=== PATIENT | male | born 2000 | race Caucasian/White ===

== ENCOUNTER 2023-08-07 11:22 | Emergency (ER) | payer OTHER, SELFPAY ==
[2023-08-07 11:30] VITALS: BP 136/86; PULSE 84; RESP 16; TEMP 37.2; O2SAT 97; BMI 32.1
--- NOTE | 2023-08-07 11:50 | ED.GENADUL1 ---
HPI - General Adult General Chief complaint: Upper Respiratory Infection Stated complaint: URTI Time Seen by Provider: 08/07/23 11:30 Source: patient Mode of arrival: walk-in Limitations: no limitations History of Present Illness HPI narrative: 21-year-old male presents for congestion in his nose and phlegm in his throat. He has a sore throat. He's had the congestion issue for several months but the throat issue for 1-2 days. No cough or shortness of breath or chest pain. Related Data Previous Rx's Medication Instructions Recorded fluticasone propionate 50 1 spray intranasal Q12H #16 grams 08/07/23 mcg/actuation nasal spray,suspension loratadine 5 mg-pseudoephedrine ER 1 tab PO Q12H PRN nasal congestion 08/07/23 120 mg tablet,extended #20 tabs release,12hr (Claritin-D 12 Hour) Allergies Allergy/AdvReac Type Severity Reaction Status Date / Time No Known Drug Allergies Allergy Verified 08/07/23 11:29 Review of Systems ROS Narrative A ten point review of systems is negative except as noted above. PFSH PFSH Social History Smoking status: Light tobacco smoker Exam Narrative Exam Narrative: Nurses note and vital signs reviewed and patient is not hypoxic. General: The patient appears well and in no apparent distress. Patient is resting comfortably on cart. Skin: Warm, dry, no pallor noted. There is no rash noted. Head: Normocephalic, atraumatic Eye: Normal conjunctiva, no drainage Ears, Nose, Mouth, and Throat: oral mucosa is moist. Nares patent. no pharyngeal erythema or exudate present. No cervical adenopathy. Cardiovascular: Regular Rate and Rhythm Respiratory: Patient is in no distress, no accessory muscle use, lungs are clear to auscultation, no wheezing, rales or rhonchi Back: non-tender GI: soft and nontender Musculoskeletal: The patient has no evidence of calf tenderness, no pitting edema, symmetrical pulses noted bilaterally Neurological: A&O, normal speech Psychiatric: Cooperative Constitutional Vital Signs, click to edit/add: Last Vital Signs Temp 99 F 08/07/23 11:30 Pulse 84 08/07/23 11:30 Resp 16 08/07/23 11:30 BP 136/86 08/07/23 11:30 Pulse Ox 97 08/07/23 11:30 O2 Del Method Room Air 08/07/23 11:30 Course Vital Signs Vital signs: Vital Signs Temperature 99 F 08/07/23 11:30 Pulse Rate 84 08/07/23 11:30 Respiratory Rate 16 08/07/23 11:30 Blood Pressure 136/86 08/07/23 11:30 Pulse Oximetry 97 08/07/23 11:30 Oxygen Delivery Method Room Air 08/07/23 11:30 Temperature 99 F 08/07/23 11:30 Pulse Rate 84 08/07/23 11:30 Respiratory Rate 16 08/07/23 11:30 Blood Pressure 136/86 08/07/23 11:30 Pulse Oximetry 97 08/07/23 11:30 Oxygen Delivery Method Room Air 08/07/23 11:30 Medical Decision Making MDM Narrative Medical decision making narrative: strep test is negative. II've no clinical suspicion of Covid or influenza. Antibiotic not indicated. He is being treated symptomatically. Treatment diagnosis and follow-up were discussed with the patient. Differential Diagnosis Differential Diagnosis: viral upper respiratory infection, strep Lab Data Lab results reviewed: Yes I reviewed the patient's lab results Labs: Lab Results 08/07/23 Range/Units 11:54 Streptococcus Screen Negative Discharge Plan Discharge Chief Complaint: Upper Respiratory Infection Clinical Impression: Upper respiratory infection Patient Disposition: Home, Self-Care Time of Disposition Decision: 12:13 Condition: Good Mode of Transportation: Private Vehicle Prescriptions / Home Meds: New Claritin-D 12 Hour 5-120 mg tablet extended release 12 hr 1 tab PO Q12H PRN (Reason: nasal congestion) Qty: 20 0RF fluticasone propionate 50 mcg/actuation spray,suspension 1 spray intranasal Q12H Qty: 16 0RF Rx Instructions: administer into each nostril Instructions: Upper Respiratory Infection (ED) Stand Alone Forms: Portal Instructions Referrals: Sukhwinder Webb DO [Primary Care Provider] - 1 week
[2023-08-07 12:08] LABS: Internal Control Within Normal Limits; Strep A Antigen Screen Negative
== END 2023-08-07 12:18 | disposition home or self-care (01) ==
PROVIDERS: Emergency Provider Emergency Medicine; PCP Internal Medicine
DX: J06.9 Acute upper respiratory infection, unspecified (principal); F17.210 Nicotine dependence, cigarettes, uncomplicated
CPT/HCPCS: 87070; 87880; 99283

== ENCOUNTER 2023-09-08 11:41 | Outpatient (OUT) | payer SELFPAY ==
--- OUTSIDE RECORDS SUMMARY | 2023-09-08 11:44 | XMS_ITS | CCD ---
Author Name Unknown Address [address] [place] [id number] Organization [facility] Care Team Providers Care Manager N[place] Name Role Phone DR SUKHWINDER MARAVILLA Primary Care Unavailable GEOVANNA KNOTT Admitting Unavailable GEOVANNA KNOTT Attending Unavailable EDILSON TATE Consulting Unavailable NILAM BARKLEY Consulting Unavailable Sukhwinder Maravilla Unavailable Medications Current Medications Medication Drug Class(es) Dates Sig (Normalized) Sig (Original) omeprazole 40 mg delayed release oral capsule (1 source) Proton Pump Inhibitor Start: 08-30-2023 take 1 capsule by mouth once daily Omeprazole 40 MG 1 capsule 30 minutes before morning meal Orally Once a day for 30 days Aug, Active Completed/Discontinued Medications Medication Drug Class(es) Dates Sig (Normalized) Sig (Original) Amoxicillin (1 source) Penicillin-class Antibacterial Amoxicillin 500 mg. Not-Taking/PRN azithromycin 250 mg oral tablet (1 source) Macrolide Antimicrobial Start: 07-06-2015 Zithromax Z-Adam 250 MG 2 tablets on the first day, then 1 tablet daily for 4 days Orally Once a day for 5 day(s) Jun, Not-Taking/PRN Ibuprofen (1 source) Nonsteroidal Anti-inflammatory Drug Ibuprofen Not-Taking/PRN methylPREDNISolone 4 mg oral tablet (1 source) Corticosteroid Start: 12-10-2016 Medrol (Adam) 4 MG half of daily dose in the morning with food and the rest at night with food Orally Nov, Not-Taking/PRN Wrist/Thumb Splint/Right Large - (1 source) Start: 12-10-2016 Wrist/Thumb Splint/Right Large - as directed Nov, Not-Taking/PRN Problems Active Problems Problem Classification Problem Date Documented Da te Episodic/Chronic E Codes: Natural/environment (1 source) Exposure to other specified factors, initial encounter; Translations: [EXPOSURE OTHER SPEC FACTORS INITIAL] Onset: 06-09-2022 Episodic Esophageal disorders (1 source) Gastro-esophageal reflux disease with esophagitis; Translations: [Gastroesophageal reflux disease with esophagitis without hemorrhage] Chronic Other nutritional; endocrine; and metabolic disorders (1 source) Obesity caused by energy imbalance; Translations: [Other obesity due to excess calories] Chronic Other nutritional; endocrine; and metabolic disorders (1 source) Body mass index 30+ - obesity; Translations: [Body mass index (BMI) 34.0-34.9, adult] Chronic Other nutritional; endocrine; and metabolic disorders (1 source) Other obesity due to excess calories Chronic Other nutritional; endocrine; and metabolic disorders (1 source) Body mass index (BMI) 34.0-34.9, adult Chronic Other upper respiratory disease (1 source) Chronic rhinitis; Translations: [Chronic rhinitis] Chronic Other upper respiratory disease (1 source) Chronic rhinitis Chronic Spondylosis; intervertebral disc disorders; other back problems (3 sources) Cervicalgia; Translations: [CERVICALGIA] Onset: 06-08-2022 Episodic Sprains and strains (2 sources) Sprain of joints and ligaments of unspecified parts of neck, initial encounter; Translations: [Sprain of wrist] Onset: 06-09-2022 Episodic Past or Other Problems Problem Classification Problem Date Documented Da te Episodic/Chronic Esophageal disorders (1 source) Esophageal disorders Unclassified (1 source) Globus sensation R09.A2 Results Test Name Value Interpretation Reference Range Facil ity XR CSPINE 2_3 VIEWSon 2021 XR CSPINE 2_3 VIEWS EXAM: XR CSPINE 2_3 VIEWS, XR TSPINE 2 VIEWS HISTORY: Neck pain COMPARISON: None. TECHNIQUE: 3 views of the cervical spine, 3 views of the thoracic spine are performed. FINDINGS: There is preservation of the normal cervical lordosis. Normal vertebral body height and disc spaces. No fracture or subluxation. Normal precervical soft tissues. The visualized paranasal sinuses are clear. Within the thoracic spine, there is no acute bony abnormality. There is preservation of vertebral body height and disc spaces. The pedicles are intact. The visualized portions of the lungs are clear. IMPRESSION: No acute bony abnormality. Electronically authenticated by: NILAM BARKLEY Date: 2022-06-08 18:05 Normal [facility] Vital Signs Date Time Vital Sign Value Performing Clinician Facility 08-30-2023 11:00-0500 Body height 177.8 cm Sukhwinder Maravilla Other [email or web address] Other 08-30-2023 11:00-0500 Body mass index (BMI) [Ratio] 34.66 kg/m2 Sukhwinder Maravilla Other [email or web address] Other 08-30-2023 11:00-0500 Body weight 109.59 kg Sukhwinder Maravilla Other [email or web address] Other 08-30-2023 11:00-0500 Diastolic blood pressure 85 mm[Hg] Sukhwinder Maravilla Other [email or web address] Other 08-30-2023 11:00-0500 Respiratory rate 12 /min Sukhwinder Maravilla Other [email or web address] Other 08-30-2023 11:00-0500 Systolic blood pressure 124 mm[Hg] Sukhwinder Maravilla Other [email or web address] Other Encounters Encounter Date Encounter Type Care Provider Facility Start: 08-30-2023 End: 08-30-2023 ambulatory Sukhwinder Maravilla Other [email or web address] Other Start: 08-30-2023 Encounter for genera l adult medical examination without abnormal findings Sukhwinder Maravilla [facility] Start: 08-30-2023 Periodic preventive med est patient 18-39 yrs Sukhwinder Maravilla [facility] Start: 06-08-2022 End: 06-08-[address] SUKHWINDER MARAVILLA Facility:[facility]1 Payers Date Payer Category Payer Unknown [id number] 1958 Private Health Insurance [id number] Private Health Insurance [id number] Social History Date Type Detail Facility Sex Assigned At [email or web address] Other Evaluation note 08-30-2023 Note Date & Type Note Facility 08-30-2023 Evaluation note Encounter Date Diagnosis Assessment Notes Aug, Wellness examination (ICD-10 - Z00.00) Healthy diet and exercise. Reviewed age-appropria te preventive testing recommended. Aug, Globus sensation (ICD-10 - R09.A2) GERD instructions. Continue FLonase daily. Referral to ENT for evaluation. Aug, Gastroesophageal reflux disease with esophagitis without hemorrhage (ICD-10 - K21.00) Aug, Chronic rhinitis (ICD-10 - J31.0) Flonase daily. OTC Claritin as needed. Aug, Other obesity due to excess calories (ICD-10 - E66.09) This patient has been instructed on a low-fat, high-fiber diet. They are instructed to reduce calories, portion sizes and snacks. It is recommended that they exercise for 30 minutes, 3-5 times weekly. Aug, Body mass index [BMI] 34.0-34.9, adult (ICD-10 - Z68.34) [email or web address] Other History general Narrative - Reported Note Date & Type Note Facility History general Narrative - Reported Type Medical History neurocardiogenic syncope Medical History cardiac murmur [email or web address] Other Summary Purpose Family History No Family History Records Found Advance Directives No Advanced Directives Records Found Reason for Referral Reason Globus sensation Diagnosis 1 Globus sensation (R0 9.A2) Diagnosis 2 Chronic rhinitis (J3 1.0) Diagnosis 3 Gastroesophageal ref lux disease with esophagitis without hemorrhage (K21.00) Referral Organization [facility] Dashawn tan Referring Provider First Name Sukhwinder Referring Provider Last Name Jon Referring Provider Specialty Internal Sc dicine Referred Organization [facility] Referred Provider Radha Kessler Referred Address ,[place], [place],[address] Referred Provider Specialty Ear, Nose an d Throat Referral Priority Routine General Notes Mr. Balderas presents w/ throat discomfort and increased phlegm. His symptoms may be due to both post nasal drainage and GERD. He has been instructed to avoid eating prior to bedtime and taking PPI on empty stomach followed in 30 minutes by bkfst. He has also been instructed to continue FLonase. He denies dysphagia or hoarseness. He is a nonsmoker. Additional Source Comments (unrecognized sect ion and content) No Status Records Found INFORMATION SOURCE (unrecogn ized section and content) DATE CREATED AUTHOR 08/13/2022 [facility] REASON FOR VISIT (unrecogniz ed section and content) Wellness FOR RECORDS PERTAINING TO PATIENTS WHO ARE OR HAVE BEEN ENROLLED IN A CHEMICAL DEPENDENCY/SUBSTANCEABUSE PROGRAM, SOME INFORMATION MAY BE OMITTED. This clinical summary was aggregated from multiple sources. Caution should be exercised in using it in the provision of clinical care. This summary normalizes information from multiple sources, and as a consequence, information in this document may materially change the coding, format and clinical context of patient data. In addition, data may be omitted in some cases. CLINICAL DECISIONS SHOULD BE BASED ON THE PRIMARY CLINICAL RECORDS. [facility] [employer] [facility]. provides no warranty or guarantee of the accuracy or completeness of information in this document.
--- NOTE | 2023-09-08 11:47 | XR_ITS ---
The [address] [address] Patient Name: ANGEL ORTA MRN: [id number] date: 2000 Sex: M Assigned Patient Location: RAD Current Patient Location: RAD Accession/Order Number: [id number] Exam Date: 09/08/2023 11:55 Report Date: 09/08/2023 12:34 At the request of: GABE GORDON Procedure: XR sinus min 3V EXAMINATION: XR sinus min 3V HISTORY: Chronic Sinusitis COMPARISON: No relevant comparison available. FINDINGS: MAXILLARY: No mucosal thickening or fluid level. ETHMOID: No mucosal thickening or fluid level. FRONTAL: No mucosal thickening or fluid level. SPHENOID: No mucosal thickening or fluid level. OTHER: Negative. XR/XR sinus min 3V IMPRESSION: Clear paranasal sinuses Electronically authenticated by: EMILY STARKS Date: 09/08/2023 12:34
== END 2023-09-08 11:42 | disposition home or self-care (01) ==
LOC: RAD 11:42
PROVIDERS: PCP Internal Medicine; Visit Provider Otolaryngology
DX: J32.9 Chronic sinusitis, unspecified (principal)
CPT/HCPCS: 70220

== ENCOUNTER 2023-12-05 10:18 | Emergency (ER) | payer OTHER, SELFPAY ==
[2023-12-05 10:21] VITALS: BP 144/80; PULSE 74; TEMP 36.7; O2SAT 99; BMI 33.5
[2023-12-05 10:38] LABS: Internal Control Within Normal Limits; Strep A Antigen Screen Negative
--- OUTSIDE RECORDS SUMMARY | 2023-12-05 10:44 | XMS_ITS | CCD ---
Author Organization [facility] Care Team Providers Care Dentistry Professor Name Role Phone DR SUKHWINDER MARAVILLA Primary Care Unavailable GEOVANNA KNOTT Admitting Unavailable GEOVANNA KNOTT Attending Unavailable EDILSON TATE Consulting Unavailable NILAM BARKLEY Consulting Unavailable Sukhwinder Maravilla GABE KESSLER Attending Unavailable SUKHWINDER MARAVILLA Referring Unavailable Medications Current Medications Medication Drug Class(es) [...] by: NILAM BARKLEY Date: 2022-06-08 18:05 Normal [facility] Vital Signs Date Time Vital Sign Value Performing Clinician Facility 08-30-2023 11:00-0500 Body height 177.8 cm Sukhwinder Maravilla Other [facility] Other 08-30-2023 11:00-0500 Body mass index (BMI) [Ratio] 34.66 kg/m2 Sukhwinder Maravilla Other [facility] Other 08-30-2023 11:00-0500 Body weight 109.59 kg Sukhwinder Maravilla Other [facility] Other 08-30-2023 11:00-0500 Diastolic blood pressure 85 mm[Hg] Sukhwinder Maravilla Other [facility] Other 08-30-2023 11:00-0500 Respiratory rate 12 /min Sukhwinder Maravilla Other [facility] Other 08-30-2023 11:00-0500 Systolic blood pressure 124 mm[Hg] Sukhwinder Maravilla Other [facility] Other Encounters Encounter Date Encounter Type Care Provider Facility Start: 09-08-2023 End: 09-08-2023 ambulatory GABE Roland EVAN Not Available Start: 08-30-2023 End: 08-30-2023 ambulatory Sukhwinder Maravilla Other [facility] Other Start: 08-30-2023 Encounter for genera l adult medical examination without abnormal findings Sukhwinder Maravilla [facility] Start: 08-30-2023 Periodic preventive med est patient 18-39 yrs Sukhwinder Maravilla [facility] Start: 06-08-2022 End: 06-08-[address] SUKHWINDER MARAVILLA Facility:[facility]1 Payers Date Payer Category Payer Private Health Insurance [id number] 2000 Unknown [id number] 2000 Unknown [id number] 1958 Private Health Insurance [id number] Private Health Insurance [id number] Social History Date Type Detail Facility Sex Assigned At [facility] Other Evaluation note 08-30-2023 Note Date & [...] index [BMI] 34.0-34.9, adult (ICD-10 - Z68.34) [facility] Other History general Narrative - Reported Note Date & Type Note Facility History general Narrative - Reported Type Medical History neurocardiogenic syncope Medical History cardiac murmur [facility] Other Summary Purpose Family History No Family History Records FoundNo Family History Records Found Advance Directives No Advanced Directives Records FoundNo Advanced Directives Records Found Reason for Referral Reason Globus sensation Diagnosis 1 Globus sensation (R0 9.A2) Diagnosis 2 Chronic rhinitis (J3 1.0) Diagnosis 3 Gastroesophageal ref lux disease with esophagitis without hemorrhage (K21.00) Referral Organization [facility] Dashawn tan Referring Provider First Name Sukhwinder Referring Provider Last Name Jon Referring Provider Specialty Internal Me dicine Referred Organization [facility] Referred Provider Gabe Kessler Referred Address ,[place], [place],[address] Referred Provider Specialty Ear, Nose an d [...] sect ion and content) No Status Records FoundNo Status Records Found INFORMATION SOURCE (unrecogn ized section and content) DATE CREATED AUTHOR 08/13/2022 [facility] DATE CREATED AUTHOR AUTHOR'S ORGANIZ ATION 09/09/2023 [facility] EPIC REASON FOR VISIT (unrecogniz ed section and [...] BE BASED ON THE PRIMARY CLINICAL RECORDS. [facility] [employer] [facility]. provides no warranty or guarantee of the accuracy or completeness of information in this document.
--- NOTE | 2023-12-05 10:46 | ED_ITS ---
HPI HPI - General Adult General Chief complaint: Upper Respiratory Infection Stated complaint: sore throat Time Seen by Provider: 12/05/23 10:41 Source: patient Mode of arrival: walk-in History of Present Illness HPI narrative: 23-year-old male presents for sore throat. Began last night and was a bit worse today. No fever. He was worried about strep throat. No vomiting or diarrhea. He had a very minimal cough yesterday which seems to have subsided. Related Data Previous Rx's ?Medication ?Instructions ?Recorded fluticasone propionate 50 1 spray intranasal Q12H #16 grams 08/07/23 mcg/actuation nasal spray,suspension loratadine 5 mg-pseudoephedrine ER 1 tab PO Q12H PRN nasal congestion 08/07/23 120 mg tablet,extended #20 tabs release,12hr (Claritin-D 12 Hour) Allergies Allergy/AdvReac Type Severity Reaction Status Date / Time No Known Drug Allergies Allergy Verified 08/07/23 11:29 Opioid HPI Opioid Management Most Recent Opioid Data: No Data to Display Review of Systems ROS Narrative A ten point review of systems is negative except as noted above. PFSH PFSH Social History Smoking status: Light tobacco smoker Exam Narrative Exam Narrative: Nurses note and vital signs reviewed and patient is not hypoxic. General: The patient appears well and in no apparent distress. Patient is resting comfortably on cart. Skin: Warm, dry, no pallor noted. There is no rash noted. Head: Normocephalic, atraumatic Eye: Normal conjunctiva, no drainage Ears, Nose, Mouth, and Throat: oral mucosa is moist. Nares patent. No pharyngeal exudate. Uvula midline. No swelling noted. He is handling his oral secretions well. Cardiovascular: Regular Rate and Rhythm Respiratory: Patient is in no distress, no accessory muscle use, lungs are clear to auscultation, no wheezing, rales or rhonchi Back: non-tender GI: Soft and nontender Musculoskeletal: The patient has no evidence of calf tenderness, no pitting edema, symmetrical pulses noted bilaterally Neurological: A&O, normal speech Psychiatric: Cooperative Constitutional Vital Signs, click to edit/add: Last Vital Signs Temp 98.0 F 12/05/23 10:21 Pulse 74 12/05/23 10:21 Resp 16 12/05/23 10:21 BP 144/80 H 12/05/23 10:21 Pulse Ox 99 12/05/23 10:21 O2 Del Method Room Air 12/05/23 10:21 Course Vital Signs Vital signs: Vital Signs Temperature 98.0 F 12/05/23 10:21 Pulse Rate 74 12/05/23 10:21 Respiratory Rate 16 12/05/23 10:21 Blood Pressure 144/80 H 12/05/23 10:21 Pulse Oximetry 99 12/05/23 10:21 Oxygen Delivery Method Room Air 12/05/23 10:21 Temperature 98.0 F 12/05/23 10:21 Pulse Rate 74 12/05/23 10:21 Respiratory Rate 16 12/05/23 10:21 Blood Pressure 144/80 H 12/05/23 10:21 Pulse Oximetry 99 12/05/23 10:21 Oxygen Delivery Method Room Air 12/05/23 10:21 Medical Decision Making MDM Narrative Medical decision making narrative: Strep test is negative with culture pending. Treatment diagnosis and follow-up were discussed with the patient. Antibiotic not indicated at this point. Differential Diagnosis Differential Diagnosis: Strep throat, viral pharyngitis Lab Data Lab results reviewed: Yes I reviewed the patient's lab results Labs: Lab Results 12/05/23 Range/Units 10:25 Streptococcus Screen Negative Discharge Plan Discharge Stand Alone Forms: Portal Instructions Chief Complaint: Upper Respiratory Infection Clinical Impression: Viral pharyngitis Patient Disposition: Home, Self-Care Time of Disposition Decision: 10:45 Condition: Good Mode of Transportation: Private Vehicle Prescriptions / Home Meds: No Action Claritin-D 12 Hour 5-120 mg tablet extended release 12 hr 1 tab PO Q12H PRN (Reason: nasal congestion) Qty: 20 0RF fluticasone propionate 50 mcg/actuation spray,suspension 1 spray intranasal Q12H Qty: 16 0RF Rx Instructions: administer into each nostril Print Language: Panamanian Instructions: Pharyngitis (ED) Referrals: Sukhwinder Webb DO [Primary Care Provider] - 1 week
[2023-12-05] MEDS: DEXAMETHASONE SOD PHOS 10 MG/ML VIAL IM (10:51)
[2023-12-05 10:56] VITALS: O2SAT 98
== END 2023-12-05 10:58 | disposition home or self-care (01) ==
PROVIDERS: Emergency Provider Emergency Medicine; PCP Internal Medicine
DX: J02.9 Acute pharyngitis, unspecified (principal); F17.210 Nicotine dependence, cigarettes, uncomplicated
CPT/HCPCS: 87070; 87880; 96372; 99284; J1100